=== PATIENT | female | born 1950 | race Caucasian/White ===

== ENCOUNTER 2025-05-19 05:52 | Outpatient (CLI) | payer MEDICARE, BC, SELFPAY ==
--- NOTE | 2025-05-19 07:45 | P.ANES_ITS ---
Anesthesia Charges Start Date/Time Anesthesia Start Date: 05/19/25 Anesthesia Start Time: 07:10 Stop Date/Time Anesthesia Stop Date: 05/19/25 Anesthesia Stop Time: 07:34 Coding CPT Codes CPT Codes: ANES LWR INTST NDSC NOS - [id number] ([id number]) P3 - PATIENT W/SEVERE SYS DISEASE, QK - CANDY BUTCHER 2-4 CNCRNT ANES PROC, QX - CERTIFIED TEACHER ASSISTANT SVC W/ MD MED DIRECTION
--- NOTE | 2025-05-19 07:45 | W.ANESCHARGE ---
Anesthesia Charges Start Date/Time Anesthesia Start Date: 05/19/25 Anesthesia Start Time: 07:10 Stop Date/Time Anesthesia Stop Date: 05/19/25 Anesthesia Stop Time: 07:34 Coding CPT Codes CPT Codes: ANES LWR INTST NDSC NOS - [id number] ([id number]) P3 - PATIENT W/SEVERE SYS DISEASE, QK - PATRIOT MISSILE AIR DEFENSE ARTILLERY 2-4 CNCRNT ANES PROC, QX - ROOFER HELPER SVC W/ MD MED DIRECTION
--- NOTE | 2025-05-19 08:37 | P.ANES_ITS ---
Anesthesia Charges Start Date/Time Anesthesia Start Date: 05/19/25 Anesthesia Start Time: 07:10 Stop Date/Time Anesthesia Stop Date: 05/19/25 Anesthesia Stop Time: 07:34 Summary Extremes of Age - Over 70 or under 1: MDA Coding CPT Codes CPT Codes: ANES LWR INTST NDSC NOS - [id number] ([id number]) QK - PHOSPHORIC ACID OPERATOR 2-4 CNCRNT ANES PROC, QX - MECHANICAL TECH SVC W/ MD MED DIRECTION, P3 - PATIENT W/SEVERE SYS DISEASE Additional Codes: Summary - Extremes of Age - Over 70 or under 1: MDA ([id number])
== END 2025-05-19 05:53 | disposition home or self-care (01) ==
LOC: OP CLINIC 05:55
PROVIDERS: PCP Family Medicine; Visit Provider Internal Medicine Gastroenterology
DX: Z12.11 Encounter for screening for malignant neoplasm of colon (principal); Z86.0101 Personal history of adenomatous and serrated colon polyps; R19.7 Diarrhea, unspecified; D12.3 Benign neoplasm of transverse colon
CPT/HCPCS: 00811; 45380; 45385; 88305; 99100; J2704

== ENCOUNTER 2025-07-18 08:32 | Outpatient (CLI) | payer MEDICARE, BC, SELFPAY | END 2025-07-18 08:33 | disposition home or self-care (01) | LOC: NFLDREF 07-22 17:30 | PROVIDERS: PCP Family Medicine; Referring Provider Family Medicine; Visit Provider Physician Assistant | DX: N39.0 Urinary tract infection, site not specified (principal) | CPT/HCPCS: 87086 ==

== ENCOUNTER 2025-07-27 08:40 | Outpatient (CLI) | payer MEDICARE, BC, SELFPAY | END 2025-07-27 08:41 | disposition home or self-care (01) | LOC: NFLDREF 08-02 06:33 | PROVIDERS: PCP Family Medicine; Referring Provider Family Medicine; Visit Provider Physician Assistant Surgical | DX: N30.01 Acute cystitis with hematuria (principal) | CPT/HCPCS: 87086 ==